=== PATIENT | female | born 2000 | race American Indian/Alaskan Native ===

== ENCOUNTER 2021-04-10 17:10 | Emergency (ER) | payer SELFPAY ==
[2021-04-10] MEDS ORDERED: ACETAMINOPHEN 500 MG TAB PO ONE (19:48)
[2021-04-10] MEDS ORDERED: IBUPROFEN 600 MG TAB PO ONE (19:48)
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
[2021-04-10 21:35] VITALS: BP 124/74
== END 2021-04-10 21:33 | disposition home or self-care (01) ==
LOC: ED 17:10
DX: S43.492A Other sprain of left shoulder joint, initial encounter (principal); M62.838 Other muscle spasm; M79.662 Pain in left lower leg; F17.200 Nicotine dependence, unspecified, uncomplicated; F12.90 Cannabis use, unspecified, uncomplicated; V89.2XXA Person injured in unspecified motor-vehicle accident, traffic, initial encounter; Y93.89 Activity, other specified; Y92.488 Other paved roadways as the place of occurrence of the external cause; Y99.8 Other external cause status
CPT/HCPCS: 71046; 99283